=== PATIENT | male | born 1980 | race Caucasian/White ===

== ENCOUNTER 2016-12-21 15:50 | Emergency (ER) | payer MEDICAID ==
[~2016-12-21] VITALS: Ht 180.3 cm; Wt 80.3 kg
[~2016-12-21 15:50] MED LIST: HYDR2TAB34 PO; KEPP500 PO; WARF2TAB57; [UNRECOGNIZED DRUG - CODE] TOP
[2016-12-21 17:08] LABS: BASOPHILS % 0.8 % (0.0-2.0); EOSINOPHILS % 0.8 % (0.0-5.0); HEMATOCRIT. 36.2 % (42.0-52.0); HEMOGLOBIN. 11.9 g/dL (14.0-18.0); LYMPHOCYTES % 32.6 % (20.0-50.0); MEAN CORPUSCULAR HEMOGLOBIN 24.8 pg (28.0-32.0); MEAN CORPUSCULAR VOLUME 75.3 fL (80.0-94.0); MEAN PLATELET VOLUME 9.9 fl (7.4-10.4); MONOCYTES % 6.5 % (2.0-8.0); NEUTROPHILS % 59.3 % (40.0-76.0); PLATELET 171 x1000/uL (130-400); RED CELL DISTRIBUTION WIDTH 20.5 % (11.6-14.6)
[2016-12-21 17:12] LABS: INR 2.1; PARTIAL THROMBOPLASTIN TIME 32.3 sec (24.0-34.0); PROTHROMBIN TIME 21.5 sec
[2016-12-21] MEDS ORDERED: MORPHINE SULFATE 2 MG/ML CPJ (NOT FOR IM USE) IV ONE (17:15)
[2016-12-21 17:20] LABS: CARBON DIOXIDE 24 mEq/L (21-32); CHLORIDE 103 mEq/L (98-107); ETHANOL BLOOD < 10 mg/dL
[2016-12-21 17:27] LABS: *AMPHETAMINES SCREEN URINE NEGATIVE (NEGATIVE); *BARBITURATES SCREEN URINE NEGATIVE (NEGATIVE); *BENZODIAZEPINES SCREEN URINE NEGATIVE (NEGATIVE); *COCAINE SCREEN URINE NEGATIVE (NEGATIVE); CANNABINOID URINE SCREEN NEGATIVE (NEGATIVE); METHADONE URINE SCREEN NEGATIVE (NEGATIVE); OPIATES URINE SCREEN PRESUMTIVE POSITIVE (NEGATIVE); PHENCYCLIDINE URINE SCREEN NEGATIVE (NEGATIVE)
[2016-12-21 17:34] LABS: TROPONIN I < 0.02 ng/mL (0.00-0.04)
[2016-12-21 18:47] VITALS: BP 112/70
== END 2016-12-21 19:00 | disposition home or self-care (01) ==
LOC: ER 16:54
DX: R07.9 Chest pain, unspecified (principal); G40.909 Epilepsy, unspecified, not intractable, without status epilepticus; Z88.6 Allergy status to analgesic agent; Z88.0 Allergy status to penicillin; Z88.8 Allergy status to other drugs, medicaments and biological substances; Z91.012 Allergy to eggs; Z91.041 Radiographic dye allergy status; Z91.010 Allergy to peanuts; Z91.040 Latex allergy status; Z79.899 Other long term (current) drug therapy; Z79.01 Long term (current) use of anticoagulants; F17.200 Nicotine dependence, unspecified, uncomplicated; R51 Headache
CPT/HCPCS: 36415; 70450; 71010; 80053; 80305; 83690; 84484; 85025; 85610; 85730; 93005; 96374; 99285; G0482; J2270; Z7610

== ENCOUNTER 2017-09-10 08:09 | Inpatient (IN) | payer MEDICAID, OTHER ==
[~2017-09-10] VITALS: Ht 182.9 cm; Wt 79.4 kg
[~2017-09-10 08:09] MED LIST changes: -HYDR2TAB34 PO; +HYDR2TAB4 PO
[2017-09-10] MEDS ORDERED: LEVETIRACETAM 500MG PREMIX 100 ML IV ONE (09:45)
[2017-09-10] MEDS ORDERED: VANCOMYCIN 1 G PREMIX 200 ML IV ONE (10:00)
[2017-09-10] MEDS ORDERED: SODIUM CHLORIDE 0.9% 1000ML BAG (SEPSIS BOLUS) IV ONE (10:00)
[2017-09-10] MEDS ORDERED: PIPERACILLIN/TAZ 3.375G PREMIX 50 ML IV ONE (10:00)
[2017-09-10 10:16] LABS: CLARITY URINE CLEAR (CLEAR); COLOR URINE YELLOW (YELLOW); KETONES URINE NEGATIVE (NEGATIVE); LEUKOCYTE ESTERASE URINE NEGATIVE (NEGATIVE); NITRITE URINE NEGATIVE (NEGATIVE); OCCULT BLOOD URINE NEGATIVE (NEGATIVE); PH URINE 7.5 (4.5-8.0); PROTEIN URINE NEGATIVE (NEGATIVE); SPECIFIC GRAVITY URINE 1.005 (1.005-1.030); UROBILINOGEN URINE 0.2 E.U./dL (0.2-1.0)
[2017-09-10] MEDS ORDERED: ASPIRIN 81MG TABLET PO ONE (11:00)
[2017-09-10] MEDS ORDERED: LIDOCAINE HCL/PF 1% 10 MG/ML 5ML VIAL ONE (11:20)
[2017-09-10] MEDS ORDERED: MORPHINE SULFATE 4 MG/ML CPJ (NOT FOR IM USE) IV STA (11:25)
[2017-09-10] MEDS ORDERED: ONDANSETRON HCL 4MG/2ML INJ IV STA (11:25)
[2017-09-10 11:43] LABS: BASOPHILS % 0.6 % (0.0-2.0); EOSINOPHILS % 2.5 % (0.0-5.0); HEMATOCRIT. 33.6 % (42.0-52.0); HEMOGLOBIN. 11.2 g/dL (14.0-18.0); LYMPHOCYTES % 30.4 % (20.0-50.0); MEAN CORPUSCULAR HEMOGLOBIN 27.9 pg (28.0-32.0); MEAN CORPUSCULAR VOLUME 83.7 fL (80.0-94.0); MEAN PLATELET VOLUME 9.6 fl (7.4-10.4); MONOCYTES % 10.2 % (2.0-8.0); NEUTROPHILS % 56.3 % (40.0-76.0); PLATELET 162 x1000/uL (130-400); RED BLOOD CELL COUNT 4.02 mill/uL (4.7-6.1); RED CELL DISTRIBUTION WIDTH 15.4 % (11.6-14.6)
[2017-09-10 11:54] LABS: CHLORIDE 108 mEq/L (98-107)
[2017-09-10 11:55] LABS: D-DIMER 0.38 mg/L FEU (<0.50); INR 2.2; PARTIAL THROMBOPLASTIN TIME 30.5 sec (23.4-31.0); PROTHROMBIN TIME 23.4 sec (9.4-11.6)
[2017-09-10] MEDS ORDERED: ACETAMINOPHEN 325MG TABLET PO PRN (13:15)
[2017-09-10] MEDS ORDERED: ONDANSETRON HCL 4MG/2ML INJ IV PRN (13:15)
[2017-09-10] MEDS ORDERED: NA PHOS,M-B/NA PHOS,DI-BA ENEMA 118ML PR PRN (13:15)
[2017-09-10] MEDS ORDERED: MAGNESIUM/ALUMINUM HYDROXIDE/SIMETHICONE 30ML UDC PO PRN (13:15)
[2017-09-10] MEDS ORDERED: GUAIFENESIN 200MG/10ML SUGAR FREE UDC PO PRN (13:15)
[2017-09-10] MEDS ORDERED: IPRATROPIUM/ALBUTEROL 0.5-3(2.5)MG/3ML NEB INH PRN (13:15)
[2017-09-10] MEDS ORDERED: DIPHENHYDRAMINE 50MG/ML VIAL IV PRN (13:15)
[2017-09-10] MEDS ORDERED: CLONIDINE 0.1MG TABLET PO PRN (13:15)
[2017-09-10] MEDS ORDERED: DOCUSATE SODIUM 100MG CAPSULE PO PRN (13:15)
[2017-09-10] MEDS ORDERED: MORPHINE SULFATE 4 MG/ML CPJ (NOT FOR IM USE) IV ONE (13:30)
[2017-09-10] MEDS: LORAZEPAM 2MG/ML CPJ IV PRN ×2 (18:46→22:30)
[2017-09-10] MEDS: MORPHINE SULFATE 4 MG/ML CPJ (NOT FOR IM USE) IV PRN ×2 (18:46→22:31)
[2017-09-10 20:47] LABS: CHLORIDE 110 mEq/L (98-107)
[2017-09-10 21:45] VITALS: BP 108/53
[2017-09-10] MEDS ORDERED: ESTR1TAB17 PO (22:47)
[2017-09-10] MEDS ORDERED: KEPP500 PO (22:47)
[2017-09-10] MEDS ORDERED: WARF-53 PO (22:47)
[2017-09-10] MEDS ORDERED: MOM PO (22:47)
[2017-09-10] MEDS ORDERED: TRAZ-212 PO (22:47)
[2017-09-10] MEDS ORDERED: ATOR40TA70 PO (22:47)
[2017-09-10] MEDS ORDERED: FENT1PAT4 TD (22:47)
[2017-09-10 22:49] VITALS: BP 108/53
[2017-09-11] MEDS ORDERED: MAGNESIUM HYDROXIDE 400MG/5ML 30ML UDC PO PRN (02:45)
[2017-09-11 04:00] VITALS: BP 108/62
[2017-09-11] MEDS: LORAZEPAM 2MG/ML CPJ IV PRN ×5 (04:11→21:34)
[2017-09-11] MEDS: MORPHINE SULFATE 4 MG/ML CPJ (NOT FOR IM USE) IV PRN ×5 (04:12→21:35)
[2017-09-11 04:49] LABS: BASOPHILS % 0.9 % (0.0-2.0); EOSINOPHILS % 4.4 % (0.0-5.0); HEMATOCRIT. 31.2 % (42.0-52.0); HEMOGLOBIN. 10.4 g/dL (14.0-18.0); LYMPHOCYTES % 43.6 % (20.0-50.0); MEAN CORPUSCULAR HEMOGLOBIN 28.1 pg (28.0-32.0); MEAN CORPUSCULAR VOLUME 84.1 fL (80.0-94.0); MEAN PLATELET VOLUME 9.8 fl (7.4-10.4); MONOCYTES % 9.8 % (2.0-8.0); NEUTROPHILS % 41.3 % (40.0-76.0); PLATELET 139 x1000/uL (130-400); RED BLOOD CELL COUNT 3.71 mill/uL (4.7-6.1); RED CELL DISTRIBUTION WIDTH 14.8 % (11.6-14.6)
[2017-09-11 05:03] LABS: CHLORIDE 109 mEq/L (98-107); HDL CHOLESTEROL 31 mg/dL (40-59); LDL CHOLESTEROL 47 mg/dL (5-100)
[2017-09-11 05:06] LABS: T4 FREE 1.17 ng/dL (0.76-1.46)
[2017-09-11 07:43] VITALS: BP 101/56
[2017-09-11] MEDS: LEVETIRACETAM 500MG TABLET PO SCH ×2 (08:59→17:23)
[2017-09-11 12:00] VITALS: BP 109/54
[2017-09-11 16:00] VITALS: BP 102/57
[2017-09-11] MEDS ORDERED: TRAZODONE HCL 50MG TABLET PO SCH (17:00)
[2017-09-11] MEDS ORDERED: WARFARIN SODIUM 7.5MG TABLET PO SCH (18:00)
[2017-09-11] MEDS ORDERED: ATORVASTATIN CALCIUM 40MG TABLET PO SCH (21:00)
[2017-09-11 21:27] VITALS: BP 106/60
[2017-09-12 01:30] VITALS: BP 103/67
[2017-09-12] MEDS: LORAZEPAM 2MG/ML CPJ IV PRN ×2 (01:33→07:02)
[2017-09-12] MEDS: MORPHINE SULFATE 4 MG/ML CPJ (NOT FOR IM USE) IV PRN ×2 (01:34→06:53)
[2017-09-12] MEDS: LEVETIRACETAM 500MG TABLET PO SCH (09:22)
[2017-09-12] MEDS ORDERED: IBUPROFEN 600MG TABLET PO PRN (11:15)
[2017-09-12 11:39] VITALS: BP 110/67
== END 2017-09-12 12:00 | disposition home or self-care (01) | DRG 53 ==
LOC: ER 08:23 → 6WST 12:41 → MERGE 12:41 → EDBEDREQTM 12:41 → EDBEDREQ 12:41 → ENRESERV 18:40
PROVIDERS: ADMIT Internal Medicine; ATTEND Internal Medicine
DX: G40.909 Epilepsy, unspecified, not intractable, without status epilepticus (principal); D68.52 Prothrombin gene mutation; I10 Essential (primary) hypertension; R07.89 Other chest pain; Z59.0 Homelessness; Z79.01 Long term (current) use of anticoagulants; Z79.82 Long term (current) use of aspirin; Z79.899 Other long term (current) drug therapy; Z86.73 Personal history of transient ischemic attack (TIA), and cerebral infarction without residual deficits; Z99.3 Dependence on wheelchair; Z88.6 Allergy status to analgesic agent
CPT/HCPCS: 36415; 71045; 80048; 80061; 83605; 83880; 84439; 84443; 84484; 85379; 93005; 96365; 96366; 96368; 96375; 96376; 99285; J2060; J2270; J2405; J2543; J3370; J3490; J7030

== ENCOUNTER 2021-04-05 15:42 | Inpatient (IN) | payer MEDICAID, OTHER ==
[~2021-04-05] VITALS: Ht 182.9 cm; Wt 89.8 kg
[~2021-04-05 15:42] MED LIST changes: +ATOR40TA70 PO; +ESTR1TAB17 PO; +FENT1PAT4 TD; +MOM PO; +TRAZ-251 PO; +WARF-53 PO
[2021-04-05] MEDS ORDERED: MORPHINE SULFATE 4 MG/ML CPJ (NOT FOR IM USE) IV ONE ×2 (17:15→18:30)
[2021-04-05] MEDS ORDERED: ONDANSETRON HCL 4MG/2ML INJ IV ONE (17:15)
[2021-04-05] MEDS ORDERED: *NO ASPIRIN X 24 HOURS XX SCH (17:15)
[2021-04-05] MEDS ORDERED: ALTEPLASE 50MG/VIAL IV NR (17:30)
[2021-04-05 17:39] LABS: BASOPHILS % 0.7 % (0.0-2.0); EOSINOPHILS % 1.5 % (0.0-5.0); HEMOGLOBIN. 12.9 g/dL (14.0-18.0); LYMPHOCYTES % 21.8 % (20.0-50.0); MEAN CORPUSCULAR HEMOGLOBIN 25.8 pg (28.0-32.0); MEAN CORPUSCULAR VOLUME 75.9 fL (80.0-94.0); MEAN PLATELET VOLUME 10.1 fl (7.4-10.4); MONOCYTES % 12.8 % (2.0-8.0); NEUTROPHILS % 63.2 % (40.0-76.0); PLATELET 257 x1000/uL (130-400); RED BLOOD CELL COUNT 5.01 mill/uL (4.7-6.1); RED CELL DISTRIBUTION WIDTH 20.1 % (11.6-14.6)
[2021-04-05 17:42] LABS: CHLORIDE 102 mEq/L (98-107)
[2021-04-05 17:46] LABS: ETHANOL BLOOD < 10 mg/dL
[2021-04-05 17:50] LABS: LDL CHOLESTEROL 69 mg/dL (5-100)
[2021-04-05 18:00] LABS: INR 1.4; PROTHROMBIN TIME 15.1 sec (9.6-11.0)
[2021-04-05] MEDS ORDERED: WATER FOR INJECTION STERILE IV NR (18:00)
[2021-04-05] MEDS ORDERED: ALTEPLASE IV NR (18:00)
[2021-04-05] MEDS ORDERED: DIPHENHYDRAMINE 50MG/ML VIAL IV ONE ×2 (18:15→19:45)
[2021-04-05 18:39] LABS: CLARITY URINE CLEAR (CLEAR); COLOR URINE YELLOW (YELLOW); KETONES URINE NEGATIVE (NEGATIVE); LEUKOCYTE ESTERASE URINE NEGATIVE (NEGATIVE); NITRITE URINE NEGATIVE (NEGATIVE); OCCULT BLOOD URINE NEGATIVE (NEGATIVE); PROTEIN URINE NEGATIVE (NEGATIVE); SPECIFIC GRAVITY URINE 1.009 (1.005-1.030); UROBILINOGEN URINE 0.2 E.U./dL (0.2-1.0)
[2021-04-05 18:54] LABS: *AMPHETAMINES SCREEN URINE NEGATIVE (NEGATIVE); *BARBITURATES SCREEN URINE NEGATIVE (NEGATIVE); *BENZODIAZEPINES SCREEN URINE NEGATIVE (NEGATIVE)
[2021-04-05 18:55] LABS: *COCAINE SCREEN URINE NEGATIVE (NEGATIVE); CANNABINOID URINE SCREEN NEGATIVE (NEGATIVE); METHADONE URINE SCREEN NEGATIVE (NEGATIVE); OPIATES URINE SCREEN NEGATIVE (NEGATIVE); PHENCYCLIDINE URINE SCREEN NEGATIVE (NEGATIVE)
[2021-04-05] MEDS ORDERED: HYDROMORPHONE HCL/PF 2MG/ML CPJ IV ONE (19:45)
[2021-04-05] MEDS ORDERED: CLONIDINE 0.1MG TABLET PO PRN (22:30)
[2021-04-05] MEDS ORDERED: GUAIFENESIN 200MG/10ML SUGAR FREE UDC PO PRN (22:30)
[2021-04-05] MEDS ORDERED: LORAZEPAM 2MG/ML CPJ IV PRN (22:30)
[2021-04-05] MEDS ORDERED: ONDANSETRON HCL 4MG/2ML INJ IV PRN (22:30)
[2021-04-05] MEDS ORDERED: DOCUSATE SODIUM 100MG CAPSULE PO PRN (22:30)
[2021-04-06] VITALS (7 sets, daily range): BP systolic 108–143; BP diastolic 58–105
[2021-04-06 06:32] LABS: BASOPHILS % 0.8 % (0.0-2.0); EOSINOPHILS % 2.5 % (0.0-5.0); HEMATOCRIT. 37.1 % (42.0-52.0); HEMOGLOBIN. 12.3 g/dL (14.0-18.0); LYMPHOCYTES % 23.3 % (20.0-50.0); MEAN CORPUSCULAR HEMOGLOBIN 25.6 pg (28.0-32.0); MEAN CORPUSCULAR VOLUME 76.8 fL (80.0-94.0); MEAN PLATELET VOLUME 9.9 fl (7.4-10.4); MONOCYTES % 11.2 % (2.0-8.0); NEUTROPHILS % 62.2 % (40.0-76.0); PLATELET 215 x1000/uL (130-400); RED BLOOD CELL COUNT 4.83 mill/uL (4.7-6.1); RED CELL DISTRIBUTION WIDTH 20.5 % (11.6-14.6)
[2021-04-06 06:39] LABS: CHLORIDE 102 mEq/L (98-107)
[2021-04-06 06:46] LABS: LDL CHOLESTEROL 73 mg/dL (5-100)
[2021-04-06 06:47] LABS: HDL CHOLESTEROL 31 mg/dL (40-59)
[2021-04-06] MEDS: HYDROMORPHONE HCL/PF 2MG/ML CPJ IV PRN ×3 (07:10→20:03)
[2021-04-06] MEDS: DIPHENHYDRAMINE 25MG CAPSULE PO PRN (08:16)
[2021-04-06] MEDS ORDERED: *PATIENT'S OWN MEDICATION STORAGE XX SCH (13:15)
[2021-04-06] MEDS: FINASTERIDE 5MG TABLET PO SCH (13:22)
[2021-04-06] MEDS: DIPHENHYDRAMINE 50MG/ML VIAL IV PRN ×2 (14:35→19:59)
[2021-04-06] MEDS ORDERED: DAPA5TAB PO (16:19)
[2021-04-06] MEDS ORDERED: ESTR2TAB PO (16:24)
[2021-04-06] MEDS: CARBAMAZEPINE 100MG TABLET CHEW PO SCH (18:09)
[2021-04-06] MEDS ORDERED: ESTRADIOL 0.5 MG TABLET PO SCH (20:00)
[2021-04-06] MEDS: ESTRADIOL 2 MG PO SCH (20:42)
[2021-04-06] MEDS: LEVETIRACETAM 500MG TABLET PO SCH (20:42)
[2021-04-07] VITALS (12 sets, daily range): BP systolic 111–154; BP diastolic 59–116
[2021-04-07] MEDS: LEVETIRACETAM 500MG TABLET PO SCH ×2 (08:37→20:37)
[2021-04-07] MEDS: FINASTERIDE 5MG TABLET PO SCH (08:37)
[2021-04-07] MEDS: ESTRADIOL 2 MG PO SCH (08:38)
[2021-04-07] MEDS: CARBAMAZEPINE 100MG TABLET CHEW PO SCH ×2 (08:38→18:41)
[2021-04-07] MEDS: DIPHENHYDRAMINE 50MG/ML VIAL IV PRN ×3 (08:42→20:29)
[2021-04-07] MEDS: HYDROMORPHONE HCL/PF 2MG/ML CPJ IV PRN ×3 (08:42→20:33)
[2021-04-07] MEDS ORDERED: ENOXAPARIN 100MG/ML SYR SUBCUT SCH (10:00)
[2021-04-07] MEDS ORDERED: HEPARIN 5000 UNITS/ML VIAL IV PRN ×2 (11:30)
[2021-04-07 12:55] LABS: INR 1.2; PARTIAL THROMBOPLASTIN TIME 28.9 sec (23.4-31.0)
[2021-04-07] MEDS ORDERED: HEPARIN 5000 UNITS/ML VIAL IV NR (13:30)
[2021-04-08] VITALS (12 sets, daily range): BP systolic 107–126; BP diastolic 58–74
[2021-04-08] MEDS: DIPHENHYDRAMINE 50MG/ML VIAL IV PRN ×4 (03:09→23:12)
[2021-04-08] MEDS: HYDROMORPHONE HCL/PF 2MG/ML CPJ IV PRN ×5 (03:12→23:28)
[2021-04-08] MEDS: CARBAMAZEPINE 100MG TABLET CHEW PO SCH ×2 (09:14→18:25)
[2021-04-08] MEDS: FINASTERIDE 5MG TABLET PO SCH (09:14)
[2021-04-08] MEDS: LEVETIRACETAM 500MG TABLET PO SCH ×2 (09:14→23:12)
[2021-04-08] MEDS: ESTRADIOL 2 MG PO SCH (09:16)
[2021-04-08] MEDS: HEPARIN 25,000 UNITS PREMIX 250 ML IV PRN (15:05)
[2021-04-08] MEDS ORDERED: WARFARIN SODIUM 7.5MG TABLET PO NR (18:00)
[2021-04-08] MEDS ORDERED: NALOXONE HCL 0.4MG/ML VIAL IV PRN (21:00)
[2021-04-09] VITALS (12 sets, daily range): BP systolic 105–140; BP diastolic 55–73
[2021-04-09 00:41] LABS: HEMATOCRIT 29.9 % (42.0-52.0); HEMOGLOBIN 9.9 g/dL (14.0-18.0); MEAN CORPUSCULAR HEMOGLOBIN 25.8 pg (28.0-32.0); MEAN CORPUSCULAR VOLUME 77.7 fL (80.0-94.0); PLATELET 192 x1000/uL (130-400); RED BLOOD CELL COUNT 3.85 mill/uL (4.7-6.1); RED CELL DISTRIBUTION WIDTH 21.1 % (11.6-14.6)
[2021-04-09 01:31] LABS: INR 1.1; PARTIAL THROMBOPLASTIN TIME 29.3 sec (23.4-31.0); PROTHROMBIN TIME 11.8 sec (9.6-11.0)
[2021-04-09] MEDS: HEPARIN 5000 UNITS/ML VIAL IV PRN (03:05)
[2021-04-09] MEDS: HEPARIN 25,000 UNITS PREMIX 250 ML IV PRN ×3 (03:43→20:05)
[2021-04-09] MEDS: DIPHENHYDRAMINE 50MG/ML VIAL IV PRN ×3 (09:22→21:43)
[2021-04-09] MEDS: HYDROMORPHONE HCL/PF 2MG/ML CPJ IV PRN ×3 (09:24→21:42)
[2021-04-09] MEDS: CARBAMAZEPINE 100MG TABLET CHEW PO SCH ×2 (09:37→19:33)
[2021-04-09] MEDS: ESTRADIOL 2 MG PO SCH (09:38)
[2021-04-09] MEDS: FINASTERIDE 5MG TABLET PO SCH (09:38)
[2021-04-09] MEDS: LEVETIRACETAM 500MG TABLET PO SCH ×2 (09:56→21:40)
[2021-04-09] MEDS ORDERED: LEVE1000 PO (16:25)
[2021-04-09] MEDS ORDERED: TRAZ-252 PO (16:27)
[2021-04-09] MEDS ORDERED: WARF7.5T48 PO (16:28)
[2021-04-09] MEDS ORDERED: CARB200T6 PO (16:28)
[2021-04-09] MEDS ORDERED: FINA5TAB11 PO (16:29)
[2021-04-09] MEDS ORDERED: WARFARIN SODIUM 10MG TABLET PO SCH (18:00)
[2021-04-09] MEDS ORDERED: WARFARIN SODIUM 7.5MG TABLET PO SCH (18:00)
[2021-04-10] VITALS (12 sets, daily range): BP systolic 104–140; BP diastolic 53–72
[2021-04-10] MEDS: DIPHENHYDRAMINE 50MG/ML VIAL IV PRN ×4 (03:50→21:02)
[2021-04-10] MEDS: HYDROMORPHONE HCL/PF 2MG/ML CPJ IV PRN ×4 (03:51→21:04)
[2021-04-10] MEDS: HEPARIN 25,000 UNITS PREMIX 250 ML IV PRN ×2 (05:58→23:36)
[2021-04-10] MEDS: ESTRADIOL 2 MG PO SCH (09:49)
[2021-04-10] MEDS: FINASTERIDE 5MG TABLET PO SCH (09:49)
[2021-04-10] MEDS: CARBAMAZEPINE 100MG TABLET CHEW PO SCH ×2 (09:49→18:55)
[2021-04-10] MEDS: LEVETIRACETAM 500MG TABLET PO SCH ×2 (09:49→21:00)
[2021-04-10 10:54] LABS: INR 1.4; PARTIAL THROMBOPLASTIN TIME 65.3 sec (23.4-31.0)
[2021-04-10] MEDS ORDERED: WARFARIN SODIUM 10MG TABLET PO SCH (18:00)
[2021-04-11] VITALS (15 sets, daily range): BP systolic 102–143; BP diastolic 52–77
[2021-04-11] MEDS: DIPHENHYDRAMINE 50MG/ML VIAL IV PRN ×4 (03:39→21:07)
[2021-04-11] MEDS: HYDROMORPHONE HCL/PF 2MG/ML CPJ IV PRN ×4 (03:56→21:12)
[2021-04-11 07:44] LABS: INR 1.7; PROTHROMBIN TIME 17.3 sec (9.6-11.0)
[2021-04-11 07:52] LABS: PARTIAL THROMBOPLASTIN TIME 77.9 sec (23.4-31.0)
[2021-04-11] MEDS: FINASTERIDE 5MG TABLET PO SCH (08:38)
[2021-04-11] MEDS: CARBAMAZEPINE 100MG TABLET CHEW PO SCH ×2 (08:38→18:52)
[2021-04-11] MEDS: LEVETIRACETAM 500MG TABLET PO SCH ×2 (08:38→20:52)
[2021-04-11] MEDS: ESTRADIOL 2 MG PO SCH (08:39)
[2021-04-11 17:19] LABS: INR 1.7; PARTIAL THROMBOPLASTIN TIME 70.8 sec (23.4-31.0); PROTHROMBIN TIME 17.7 sec (9.6-11.0)
[2021-04-11] MEDS ORDERED: WARFARIN SODIUM 10MG TABLET PO SCH (18:00)
[2021-04-11] MEDS: HEPARIN 25,000 UNITS PREMIX 250 ML IV PRN (21:05)
[2021-04-12] VITALS (11 sets, daily range): BP systolic 95–133; BP diastolic 56–79
[2021-04-12] MEDS: DIPHENHYDRAMINE 50MG/ML VIAL IV PRN ×4 (02:43→22:17)
[2021-04-12] MEDS: HYDROMORPHONE HCL/PF 2MG/ML CPJ IV PRN ×4 (02:46→22:39)
[2021-04-12] MEDS: HEPARIN 5000 UNITS/ML VIAL IV PRN ×2 (03:49→19:41)
[2021-04-12] MEDS: FINASTERIDE 5MG TABLET PO SCH (09:07)
[2021-04-12] MEDS: CARBAMAZEPINE 100MG TABLET CHEW PO SCH ×2 (09:07→18:02)
[2021-04-12] MEDS: LEVETIRACETAM 500MG TABLET PO SCH ×2 (09:07→21:35)
[2021-04-12] MEDS: ESTRADIOL 2 MG PO SCH (09:08)
[2021-04-12 10:47] LABS: INR 1.8; PARTIAL THROMBOPLASTIN TIME 50.7 sec (23.4-31.0); PROTHROMBIN TIME 18.9 sec (9.6-11.0)
[2021-04-12] MEDS ORDERED: WARFARIN SODIUM 10MG TABLET PO NR (18:00)
[2021-04-13] VITALS (12 sets, daily range): BP systolic 102–141; BP diastolic 59–94
[2021-04-13] MEDS: DIPHENHYDRAMINE 50MG/ML VIAL IV PRN ×4 (04:00→22:06)
[2021-04-13] MEDS: HYDROMORPHONE HCL/PF 2MG/ML CPJ IV PRN ×4 (04:02→22:07)
[2021-04-13] MEDS: LEVETIRACETAM 500MG TABLET PO SCH ×2 (09:51→22:19)
[2021-04-13] MEDS: CARBAMAZEPINE 100MG TABLET CHEW PO SCH ×2 (09:51→18:41)
[2021-04-13] MEDS: ESTRADIOL 2 MG PO SCH (09:51)
[2021-04-13] MEDS: FINASTERIDE 5MG TABLET PO SCH (09:51)
[2021-04-13 12:19] LABS: INR 2.1; PARTIAL THROMBOPLASTIN TIME 46.9 sec (23.4-31.0); PROTHROMBIN TIME 21.1 sec (9.6-11.0)
[2021-04-13] MEDS ORDERED: WARFARIN SODIUM 10MG TABLET PO SCH (18:00)
[2021-04-13] MEDS: HEPARIN 5000 UNITS/ML VIAL IV PRN (22:27)
[2021-04-13] MEDS: HEPARIN 25,000 UNITS PREMIX 250 ML IV PRN (22:36)
[2021-04-14] VITALS (11 sets, daily range): BP systolic 105–155; BP diastolic 35–107
[2021-04-14] MEDS: DIPHENHYDRAMINE 50MG/ML VIAL IV PRN ×4 (04:07→21:47)
[2021-04-14] MEDS: HYDROMORPHONE HCL/PF 2MG/ML CPJ IV PRN ×4 (04:54→21:53)
[2021-04-14 07:34] LABS: INR 2.2; PROTHROMBIN TIME 22.1 sec (9.6-11.0)
[2021-04-14 07:53] LABS: PARTIAL THROMBOPLASTIN TIME 78.4 sec (23.4-31.0)
[2021-04-14] MEDS: CARBAMAZEPINE 100MG TABLET CHEW PO SCH ×2 (08:56→18:13)
[2021-04-14] MEDS: FINASTERIDE 5MG TABLET PO SCH (08:56)
[2021-04-14] MEDS: LEVETIRACETAM 500MG TABLET PO SCH ×2 (08:56→21:00)
[2021-04-14] MEDS: ESTRADIOL 2 MG PO SCH (08:57)
[2021-04-14] MEDS: HEPARIN 25,000 UNITS PREMIX 250 ML IV PRN (11:04)
[2021-04-14] MEDS ORDERED: WARFARIN SODIUM 10MG TABLET PO SCH (18:00)
[2021-04-15] VITALS (12 sets, daily range): BP systolic 105–131; BP diastolic 57–79
[2021-04-15] MEDS: DIPHENHYDRAMINE 50MG/ML VIAL IV PRN ×3 (06:07→18:09)
[2021-04-15] MEDS: HYDROMORPHONE HCL/PF 2MG/ML CPJ IV PRN ×3 (06:09→18:11)
[2021-04-15 07:53] LABS: PROTHROMBIN TIME 20.4 sec (9.6-11.0)
[2021-04-15] MEDS: FINASTERIDE 5MG TABLET PO SCH (08:48)
[2021-04-15] MEDS: LEVETIRACETAM 500MG TABLET PO SCH ×2 (08:48→21:08)
[2021-04-15] MEDS: CARBAMAZEPINE 100MG TABLET CHEW PO SCH ×2 (08:48→17:57)
[2021-04-15] MEDS: ESTRADIOL 2 MG PO SCH (08:49)
[2021-04-15] MEDS: WARFARIN SODIUM 10MG TABLET PO SCH (18:00)
[2021-04-16] VITALS (12 sets, daily range): BP systolic 101–131; BP diastolic 54–101
[2021-04-16] MEDS: DIPHENHYDRAMINE 50MG/ML VIAL IV PRN ×5 (00:02→22:40)
[2021-04-16] MEDS: HYDROMORPHONE HCL/PF 2MG/ML CPJ IV PRN (00:05)
[2021-04-16] MEDS ORDERED: HYDROMORPHONE HCL/PF 2MG/ML CPJ IV SCH (06:45)
[2021-04-16 08:03] LABS: INR 2.1; PROTHROMBIN TIME 21.3 sec (9.6-11.0)
[2021-04-16] MEDS: CARBAMAZEPINE 100MG TABLET CHEW PO SCH ×2 (08:59→18:06)
[2021-04-16] MEDS: LEVETIRACETAM 500MG TABLET PO SCH ×2 (08:59→22:02)
[2021-04-16] MEDS: FINASTERIDE 5MG TABLET PO SCH (08:59)
[2021-04-16] MEDS: ESTRADIOL 2 MG PO SCH (09:00)
[2021-04-16] MEDS: MORPHINE SULFATE 2 MG/ML CPJ (NOT FOR IM USE) IV PRN ×3 (10:48→22:42)
[2021-04-16] MEDS: WARFARIN SODIUM 10MG TABLET PO SCH (18:06)
[2021-04-17] VITALS (9 sets, daily range): BP systolic 100–132; BP diastolic 50–69
[2021-04-17] MEDS: DIPHENHYDRAMINE 50MG/ML VIAL IV PRN ×2 (06:16→20:00)
[2021-04-17] MEDS: MORPHINE SULFATE 2 MG/ML CPJ (NOT FOR IM USE) IV PRN ×2 (06:17→18:31)
[2021-04-17] MEDS: CARBAMAZEPINE 100MG TABLET CHEW PO SCH ×2 (08:05→17:00)
[2021-04-17 08:07] LABS: INR 2.2; PROTHROMBIN TIME 22.5 sec (9.6-11.0)
[2021-04-17 08:21] LABS: HEMATOCRIT 28.9 % (42.0-52.0); HEMOGLOBIN 9.6 g/dL (14.0-18.0); MEAN CORPUSCULAR HEMOGLOBIN 26.1 pg (28.0-32.0); MEAN CORPUSCULAR VOLUME 78.3 fL (80.0-94.0); PLATELET 248 x1000/uL (130-400); RED BLOOD CELL COUNT 3.69 mill/uL (4.7-6.1); RED CELL DISTRIBUTION WIDTH 19.7 % (11.6-14.6)
[2021-04-17] MEDS: FINASTERIDE 5MG TABLET PO SCH (09:09)
[2021-04-17] MEDS: LEVETIRACETAM 500MG TABLET PO SCH ×2 (09:09→19:52)
[2021-04-17] MEDS: ESTRADIOL 2 MG PO SCH (09:09)
[2021-04-17] MEDS ORDERED: *PATIENT'S OWN MEDICATION STORAGE XX SCH (16:15)
[2021-04-17] MEDS ORDERED: WARFARIN SODIUM 10MG TABLET PO NR (18:00)
[2021-04-17] MEDS: DIPHENHYDRAMINE 25MG CAPSULE PO PRN (19:53)
[2021-04-18] VITALS: BP 102/61
[2021-04-18] MEDS: MORPHINE SULFATE 2 MG/ML CPJ (NOT FOR IM USE) IV PRN ×4 (00:34→18:32)
[2021-04-18] MEDS: DIPHENHYDRAMINE 50MG/ML VIAL IV PRN ×4 (01:42→20:17)
[2021-04-18 04:00] VITALS: BP 99/61
[2021-04-18 06:29] LABS: INR 2.4; PROTHROMBIN TIME 24.2 sec (9.6-11.0)
[2021-04-18 08:00] VITALS: BP 100/57
[2021-04-18] MEDS: CARBAMAZEPINE 100MG TABLET CHEW PO SCH ×2 (08:07→17:52)
[2021-04-18] MEDS: FINASTERIDE 5MG TABLET PO SCH (08:08)
[2021-04-18] MEDS: LEVETIRACETAM 500MG TABLET PO SCH ×2 (08:08→20:17)
[2021-04-18] MEDS: ESTRADIOL 2 MG PO SCH (08:08)
[2021-04-18 12:00] VITALS: BP 105/61
[2021-04-18] MEDS ORDERED: WARFARIN SODIUM 10MG TABLET PO NR (18:00)
[2021-04-18 20:00] VITALS: BP 105/63
[2021-04-19] VITALS: BP 105/60
[2021-04-19] MEDS: MORPHINE SULFATE 2 MG/ML CPJ (NOT FOR IM USE) IV PRN ×3 (00:32→15:12)
[2021-04-19] MEDS: DIPHENHYDRAMINE 50MG/ML VIAL IV PRN ×4 (02:11→22:25)
[2021-04-19 04:00] VITALS: BP 108/65
[2021-04-19 08:00] VITALS: BP 113/64
[2021-04-19] MEDS: LEVETIRACETAM 500MG TABLET PO SCH ×2 (08:51→21:48)
[2021-04-19] MEDS: FINASTERIDE 5MG TABLET PO SCH (08:51)
[2021-04-19] MEDS: ESTRADIOL 2 MG PO SCH (08:52)
[2021-04-19] MEDS: CARBAMAZEPINE 100MG TABLET CHEW PO SCH ×2 (08:52→18:07)
[2021-04-19 10:56] LABS: INR 2.6; PROTHROMBIN TIME 25.6 sec (9.6-11.0)
[2021-04-19] MEDS ORDERED: WARFARIN SODIUM 10MG TABLET PO SCH (18:00)
[2021-04-19] MEDS ORDERED: MORPHINE SULFATE 2 MG/ML CPJ (NOT FOR IM USE) IV NR (18:00)
[2021-04-19 20:00] VITALS: BP 127/72
[2021-04-20] VITALS: BP 120/66
[2021-04-20] MEDS: MORPHINE SULFATE 2 MG/ML CPJ (NOT FOR IM USE) IV PRN ×2 (00:05→06:07)
[2021-04-20] MEDS: DIPHENHYDRAMINE 50MG/ML VIAL IV PRN ×4 (04:27→23:08)
[2021-04-20 06:06] VITALS: BP 119/63
[2021-04-20] MEDS: LEVETIRACETAM 500MG TABLET PO SCH ×2 (08:57→22:10)
[2021-04-20] MEDS: FINASTERIDE 5MG TABLET PO SCH (08:57)
[2021-04-20] MEDS: CARBAMAZEPINE 100MG TABLET CHEW PO SCH ×2 (08:57→17:01)
[2021-04-20] MEDS: ESTRADIOL 2 MG PO SCH (08:58)
[2021-04-20 11:37] LABS: INR 2.3; PROTHROMBIN TIME 23.4 sec (9.6-11.0)
[2021-04-20 12:00] VITALS: BP 122/56
[2021-04-20] MEDS: HYDROMORPHONE HCL/PF 2MG/ML CPJ IV PRN ×2 (13:00→19:01)
[2021-04-20 16:00] VITALS: BP 124/56
[2021-04-20] MEDS ORDERED: WARFARIN SODIUM 10MG TABLET PO SCH (18:00)
[2021-04-20 20:00] VITALS: BP 129/78
[2021-04-21] VITALS: BP 117/62
[2021-04-21] MEDS: HYDROMORPHONE HCL/PF 2MG/ML CPJ IV PRN ×4 (01:09→19:45)
[2021-04-21 04:00] VITALS: BP 104/64
[2021-04-21] MEDS: DIPHENHYDRAMINE 50MG/ML VIAL IV PRN ×3 (06:02→21:56)
[2021-04-21] MEDS: ESTRADIOL 2 MG PO SCH (08:17)
[2021-04-21] MEDS: LEVETIRACETAM 500MG TABLET PO SCH ×2 (08:17→22:05)
[2021-04-21] MEDS: FINASTERIDE 5MG TABLET PO SCH (08:17)
[2021-04-21] MEDS: CARBAMAZEPINE 100MG TABLET CHEW PO SCH ×2 (08:17→17:38)
[2021-04-21 13:19] LABS: INR 2.3; PROTHROMBIN TIME 23.2 sec (9.6-11.0)
[2021-04-21 16:00] VITALS: BP 119/65
[2021-04-21] MEDS ORDERED: WARFARIN SODIUM 10MG TABLET PO SCH (18:00)
[2021-04-21 20:00] VITALS: BP 153/66
[2021-04-22] VITALS: BP 104/59
[2021-04-22] MEDS: HYDROMORPHONE HCL/PF 2MG/ML CPJ IV PRN ×2 (02:15→09:32)
[2021-04-22] MEDS: DIPHENHYDRAMINE 50MG/ML VIAL IV PRN ×4 (03:56→22:42)
[2021-04-22 08:00] VITALS: BP 109/68
[2021-04-22] MEDS: CARBAMAZEPINE 100MG TABLET CHEW PO SCH (09:22)
[2021-04-22] MEDS: ESTRADIOL 2 MG PO SCH (09:23)
[2021-04-22] MEDS: FINASTERIDE 5MG TABLET PO SCH (09:25)
[2021-04-22] MEDS: LEVETIRACETAM 500MG TABLET PO SCH ×2 (09:51→21:00)
[2021-04-22 16:00] VITALS: BP 112/69
[2021-04-22] MEDS ORDERED: OXYCODONE HCL/ACETAMINOPHEN 5/325MG TABLET PO PRN (16:45)
[2021-04-22] MEDS ORDERED: NALOXONE HCL 0.4MG/ML VIAL IV PRN (17:00)
[2021-04-22] MEDS ORDERED: WARFARIN SODIUM 10MG TABLET PO SCH (18:00)
[2021-04-22] MEDS ORDERED: OXYCODONE HCL 5MG TABLET PO PRN (18:15)
[2021-04-22 19:52] VITALS: BP 157/67
[2021-04-23] MEDS: DIPHENHYDRAMINE 50MG/ML VIAL IV PRN (05:03)
== END 2021-04-23 08:45 | disposition left against medical advice (07) | DRG 45 ==
LOC: ER 15:42 → MICUSO 18:57 → EDBEDREQTM 19:09 → EDBEDREQ 19:09 → EDBEDREQSVC 19:09 → 5EST 04-06 08:34 → 6EST 04-17 14:31
PROVIDERS: ADMIT Hospitalist; ATTEND Hospitalist
DX: I63.9 Cerebral infarction, unspecified (principal); D68.52 Prothrombin gene mutation; D68.59 Other primary thrombophilia; D68.2 Hereditary deficiency of other clotting factors; G81.91 Hemiplegia, unspecified affecting right dominant side; F64.9 Gender identity disorder, unspecified; E11.9 Type 2 diabetes mellitus without complications; G40.909 Epilepsy, unspecified, not intractable, without status epilepticus; G51.0 Bell's palsy; R29.707 NIHSS score 7; Z86.73 Personal history of transient ischemic attack (TIA), and cerebral infarction without residual deficits; Z86.711 Personal history of pulmonary embolism; Z79.890 Hormone replacement therapy; Z91.041 Radiographic dye allergy status; Z87.892 Personal history of anaphylaxis; Z88.8 Allergy status to other drugs, medicaments and biological substances; Z88.6 Allergy status to analgesic agent; Z91.012 Allergy to eggs; Z91.040 Latex allergy status; Z91.013 Allergy to seafood; Z79.01 Long term (current) use of anticoagulants; Z79.891 Long term (current) use of opiate analgesic; Z99.3 Dependence on wheelchair; Z59.00 Homelessness unspecified; Z91.19 Patient's noncompliance with other medical treatment and regimen
CPT/HCPCS: 36415; 70544; 70553; 71045; 80053; 80061; 80305; 80320; 81003; 82962; 83721; 84484; 85025; 85027; 93005; 97110; 97162; 97166; 99291; J1170; J1200; J1644; J2270; J2405; J2997; J7042; Q0163; G0480

== ENCOUNTER 2021-12-10 17:16 | Inpatient (IN) | payer MEDICAID ==
[~2021-12-10] VITALS: Ht 182.9 cm; Wt 85.7 kg
[~2021-12-10 17:16] MED LIST changes: +CARB200T6 PO; +DAPA5TAB PO; -ESTR1TAB17 PO; +ESTR2TAB6 PO; -FENT1PAT4 TD; +FINA5TAB11 PO; -HYDR2TAB4 PO; -KEPP500 PO; +LEVE1000 PO; -MOM PO; -TRAZ-251 PO; +TRAZ-252 PO; -WARF-53 PO; -WARF2TAB57; +WARF7.5T48 PO; -[UNRECOGNIZED DRUG - CODE] TOP
[2021-12-10] MEDS ORDERED: PROSCAR (17:29)
[2021-12-10] MEDS ORDERED: ESTRADIOL (17:29)
[2021-12-10 18:13] LABS: CLARITY URINE CLEAR (CLEAR); COLOR URINE YELLOW (YELLOW); KETONES URINE NEGATIVE (NEGATIVE); LEUKOCYTE ESTERASE URINE NEGATIVE (NEGATIVE); NITRITE URINE NEGATIVE (NEGATIVE); OCCULT BLOOD URINE NEGATIVE (NEGATIVE); PROTEIN URINE NEGATIVE (NEGATIVE); SPECIFIC GRAVITY URINE 1.004 (1.005-1.030); UROBILINOGEN URINE 0.2 E.U./dL (0.2-1.0)
[2021-12-10 18:26] LABS: *AMPHETAMINES SCREEN URINE NEGATIVE (NEGATIVE); *BARBITURATES SCREEN URINE NEGATIVE (NEGATIVE); *BENZODIAZEPINES SCREEN URINE NEGATIVE (NEGATIVE); *COCAINE SCREEN URINE NEGATIVE (NEGATIVE); CANNABINOID URINE SCREEN NEGATIVE (NEGATIVE); METHADONE URINE SCREEN NEGATIVE (NEGATIVE); OPIATES URINE SCREEN NEGATIVE (NEGATIVE); PHENCYCLIDINE URINE SCREEN NEGATIVE (NEGATIVE)
[2021-12-10] MEDS ORDERED: DIPHENHYDRAMINE 50MG/ML VIAL IM ONE (18:45)
[2021-12-10] MEDS ORDERED: MORPHINE SULFATE 4 MG/ML CPJ (NOT FOR IM USE) IV ONE (18:45)
[2021-12-10] MEDS ORDERED: ALTEPLASE 2MG/VIAL ITC ONE (18:45)
[2021-12-10] MEDS ORDERED: ALTEPLASE IV ONE (18:45)
[2021-12-10] MEDS ORDERED: SODIUM CHLORIDE 0.9% IV ONE (18:45)
[2021-12-10] MEDS ORDERED: *NO ASPIRIN X 24 HOURS XX SCH (19:00)
[2021-12-10] MEDS ORDERED: ALTEPLASE 100MG/VIAL IV ONE (19:00)
[2021-12-10] MEDS ORDERED: ALTEPLASE IV NR (19:00)
[2021-12-10] MEDS ORDERED: MORPHINE SULFATE 4 MG/ML CPJ (NOT FOR IM USE) IV STA ×2 (19:20→20:47)
[2021-12-10] MEDS ORDERED: ONDANSETRON HCL 4MG/2ML INJ IV STA ×2 (19:20→20:47)
[2021-12-10] MEDS ORDERED: DIPHENHYDRAMINE 50MG/ML VIAL IV ONE (19:30)
[2021-12-10 19:42] LABS: BASOPHILS % 0.4 % (0.0-2.0); EOSINOPHILS % 0.3 % (0.0-5.0); HEMATOCRIT. 25.1 % (42.0-52.0); HEMOGLOBIN. 7.9 g/dL (14.0-18.0); LYMPHOCYTES % 18.6 % (20.0-50.0); MEAN CORPUSCULAR HEMOGLOBIN 21.8 pg (28.0-32.0); MEAN CORPUSCULAR VOLUME 69.3 fL (80.0-94.0); MEAN PLATELET VOLUME 9.8 fl (7.4-10.4); MONOCYTES % 8.9 % (2.0-8.0); NEUTROPHILS % 71.8 % (40.0-76.0); PLATELET 205 x1000/uL (130-400); RED BLOOD CELL COUNT 3.62 mill/uL (4.7-6.1); RED CELL DISTRIBUTION WIDTH 20.5 % (11.6-14.6)
[2021-12-10 19:52] LABS: INR 2.8; PARTIAL THROMBOPLASTIN TIME 24.9 sec (23.4-31.0); PROTHROMBIN TIME 27.3 sec (9.6-11.0)
[2021-12-10 20:52] LABS: CHLORIDE 105 mEq/L (98-107)
[2021-12-10 21:01] LABS: ETHANOL BLOOD < 10 mg/dL
[2021-12-10 21:24] LABS: PLATELET ESTIMATE NORMAL
[2021-12-10] MEDS ORDERED: GUAIFENESIN 200MG/10ML SUGAR FREE UDC PO PRN (23:00)
[2021-12-10] MEDS ORDERED: ONDANSETRON HCL 4MG/2ML INJ IV PRN (23:00)
[2021-12-10] MEDS ORDERED: MAGNESIUM/ALUMINUM HYDROXIDE/SIMETHICONE 30ML UDC PO PRN (23:00)
[2021-12-10] MEDS ORDERED: NALOXONE HCL 0.4MG/ML VIAL IV PRN (23:30)
[2021-12-10] MEDS: MORPHINE SULFATE 4 MG/ML CPJ (NOT FOR IM USE) IV PRN (23:34)
[2021-12-11] VITALS (12 sets, daily range): BP systolic 115–138; BP diastolic 43–80
[2021-12-11] MEDS: MORPHINE SULFATE 4 MG/ML CPJ (NOT FOR IM USE) IV PRN ×7 (03:23→22:54)
[2021-12-11] MEDS: DIPHENHYDRAMINE 50MG CAPSULE PO PRN ×2 (05:05→16:57)
[2021-12-11] MEDS ORDERED: FENT1PAT5 TP (05:36)
[2021-12-11] MEDS ORDERED: HYDROXYZINE 25MG TABLET PO PRN (06:30)
[2021-12-11] MEDS: LEVETIRACETAM 500MG TABLET PO SCH ×2 (08:40→20:56)
[2021-12-11 11:16] LABS: BASOPHILS % 0.8 % (0.0-2.0); EOSINOPHILS % 2.6 % (0.0-5.0); HEMATOCRIT. 24.5 % (42.0-52.0); HEMOGLOBIN. 7.7 g/dL (14.0-18.0); LYMPHOCYTES % 28.8 % (20.0-50.0); MEAN CORPUSCULAR HEMOGLOBIN 21.5 pg (28.0-32.0); MEAN CORPUSCULAR VOLUME 68.8 fL (80.0-94.0); MEAN PLATELET VOLUME 9.5 fl (7.4-10.4); MONOCYTES % 13.8 % (2.0-8.0); PLATELET 183 x1000/uL (130-400); RED BLOOD CELL COUNT 3.56 mill/uL (4.7-6.1); RED CELL DISTRIBUTION WIDTH 20.4 % (11.6-14.6)
[2021-12-11 11:27] LABS: INR 1.8; PROTHROMBIN TIME 18.8 sec (9.6-11.0)
[2021-12-11 11:31] LABS: CHLORIDE 104 mEq/L (98-107)
[2021-12-11 11:37] LABS: PHOSPHORUS 3.3 mg/dL (2.5-4.9)
[2021-12-12] VITALS (7 sets, daily range): BP systolic 113–129; BP diastolic 59–84
[2021-12-12] MEDS: MORPHINE SULFATE 4 MG/ML CPJ (NOT FOR IM USE) IV PRN ×8 (01:53→23:48)
[2021-12-12] MEDS: LEVETIRACETAM 500MG TABLET PO SCH ×2 (08:26→20:48)
[2021-12-12 10:26] LABS: EOSINOPHILS % 3.4 % (0.0-5.0); HEMATOCRIT. 24.3 % (42.0-52.0); HEMOGLOBIN. 7.6 g/dL (14.0-18.0); LYMPHOCYTES % 30.5 % (20.0-50.0); MEAN CORPUSCULAR HEMOGLOBIN 21.5 pg (28.0-32.0); MEAN CORPUSCULAR VOLUME 68.9 fL (80.0-94.0); MEAN PLATELET VOLUME 9.2 fl (7.4-10.4); NEUTROPHILS % 51.1 % (40.0-76.0); PLATELET 167 x1000/uL (130-400); RED BLOOD CELL COUNT 3.52 mill/uL (4.7-6.1); RED CELL DISTRIBUTION WIDTH 20.4 % (11.6-14.6)
[2021-12-12 10:49] LABS: CHLORIDE 102 mEq/L (98-107)
[2021-12-12 10:56] LABS: PHOSPHORUS 3.1 mg/dL (2.5-4.9)
[2021-12-12] MEDS ORDERED: HYDROXYZINE 25MG TABLET PO PRN (22:30)
[2021-12-13] MEDS ORDERED: HYDROXYZINE 25MG TABLET PO PRN (00:30)
[2021-12-13] MEDS: MORPHINE SULFATE 4 MG/ML CPJ (NOT FOR IM USE) IV PRN ×6 (02:57→21:07)
[2021-12-13 04:00] VITALS: BP 124/65
[2021-12-13] MEDS: HYDROCORTISONE 1% CREAM 30GM TOP SCH ×3 (06:00→21:09)
[2021-12-13 08:00] VITALS: BP 115/68
[2021-12-13] MEDS: LEVETIRACETAM 500MG TABLET PO SCH ×2 (08:41→21:05)
[2021-12-13] MEDS ORDERED: NALOXONE HCL 0.4MG/ML VIAL IV PRN (08:45)
[2021-12-13] MEDS ORDERED: POLYETHYLENE GLYCOL 3350 (17GM) 1 DOSE PACK PO PRN (09:15)
[2021-12-13] MEDS ORDERED: MAGNESIUM HYDROXIDE 400MG/5ML 30ML UDC PO PRN (09:15)
[2021-12-13] MEDS: SENNOSIDES/DOCUSATE SOD 8.6/50MG TABLET PO SCH ×2 (10:07→16:29)
[2021-12-13 12:00] VITALS: BP 121/54
[2021-12-13 14:20] LABS: EOSINOPHILS % 3.8 % (0.0-5.0); HEMATOCRIT. 25.4 % (42.0-52.0); LYMPHOCYTES % 26.4 % (20.0-50.0); MEAN CORPUSCULAR HEMOGLOBIN 21.6 pg (28.0-32.0); MEAN CORPUSCULAR VOLUME 68.1 fL (80.0-94.0); MEAN PLATELET VOLUME 10.2 fl (7.4-10.4); MONOCYTES % 12.4 % (2.0-8.0); NEUTROPHILS % 56.4 % (40.0-76.0); PLATELET 199 x1000/uL (130-400); RED BLOOD CELL COUNT 3.73 mill/uL (4.7-6.1); RED CELL DISTRIBUTION WIDTH 20.2 % (11.6-14.6)
[2021-12-13 14:30] LABS: CHLORIDE 102 mEq/L (98-107)
[2021-12-13 16:00] VITALS: BP 110/75
[2021-12-13 20:00] VITALS: BP 118/67
[2021-12-14] MEDS: HYDROCORTISONE 1% CREAM 30GM TOP SCH ×3 (06:00→22:00)
[2021-12-14 08:00] VITALS: BP 102/53
[2021-12-14] MEDS: LEVETIRACETAM 500MG TABLET PO SCH ×2 (08:59→20:53)
[2021-12-14] MEDS: SENNOSIDES/DOCUSATE SOD 8.6/50MG TABLET PO SCH ×2 (09:00→17:00)
[2021-12-14] MEDS: MORPHINE SULFATE 4 MG/ML CPJ (NOT FOR IM USE) IV PRN ×2 (09:00→20:54)
[2021-12-14 09:06] LABS: BASOPHILS % 0.9 % (0.0-2.0); EOSINOPHILS % 4.1 % (0.0-5.0); HEMATOCRIT. 25.6 % (42.0-52.0); LYMPHOCYTES % 28.3 % (20.0-50.0); MEAN CORPUSCULAR HEMOGLOBIN 21.3 pg (28.0-32.0); MEAN PLATELET VOLUME 9.3 fl (7.4-10.4); MONOCYTES % 14.4 % (2.0-8.0); NEUTROPHILS % 52.3 % (40.0-76.0); PLATELET 197 x1000/uL (130-400); RED BLOOD CELL COUNT 3.77 mill/uL (4.7-6.1); RED CELL DISTRIBUTION WIDTH 20.2 % (11.6-14.6)
[2021-12-14 09:20] LABS: CHLORIDE 105 mEq/L (98-107)
[2021-12-14 09:21] LABS: PROTHROMBIN TIME 10.7 sec (9.6-11.0)
[2021-12-14 09:36] LABS: TOTAL IRON BINDING CAPACITY 418 ug/dL (250-450)
[2021-12-14] MEDS: FERROUS SULFATE 325MG TABLET PO SCH (11:00)
[2021-12-14 12:00] VITALS: BP 118/60
[2021-12-14 16:00] VITALS: BP 127/60
[2021-12-14] MEDS: FINASTERIDE 5MG TABLET PO SCH (17:02)
[2021-12-14] MEDS ORDERED: HEPARIN 5000 UNITS/ML VIAL IV NR (17:30)
[2021-12-14] MEDS ORDERED: WARFARIN SODIUM 5MG TABLET PO NR (18:00)
[2021-12-14] MEDS ORDERED: WARFARIN SODIUM 7.5MG TABLET PO SCH (18:00)
[2021-12-14] MEDS: HEPARIN 25,000 UNITS PREMIX 250 ML IV PRN (18:01)
[2021-12-15] VITALS: BP 116/3
[2021-12-15] MEDS ORDERED: HEPARIN 5000 UNITS/ML VIAL IV PRN ×2
[2021-12-15] MEDS: MORPHINE SULFATE 4 MG/ML CPJ (NOT FOR IM USE) IV PRN ×3 (00:54→09:22)
[2021-12-15] MEDS: HEPARIN 25,000 UNITS PREMIX 250 ML IV PRN (03:23)
[2021-12-15 04:00] VITALS: BP 117/63
[2021-12-15] MEDS: HYDROCORTISONE 1% CREAM 30GM TOP SCH (05:19)
[2021-12-15 08:00] VITALS: BP 110/71
[2021-12-15] MEDS: FERROUS SULFATE 325MG TABLET PO SCH (09:00)
[2021-12-15] MEDS: SENNOSIDES/DOCUSATE SOD 8.6/50MG TABLET PO SCH (09:00)
[2021-12-15] MEDS: FINASTERIDE 5MG TABLET PO SCH (09:12)
[2021-12-15] MEDS: LEVETIRACETAM 500MG TABLET PO SCH (09:13)
[2021-12-15 09:22] VITALS: BP 110/71
[2021-12-15 10:28] LABS: BASOPHILS % 0.8 % (0.0-2.0); EOSINOPHILS % 4.4 % (0.0-5.0); HEMATOCRIT. 23.9 % (42.0-52.0); HEMOGLOBIN. 7.5 g/dL (14.0-18.0); MEAN CORPUSCULAR HEMOGLOBIN 21.5 pg (28.0-32.0); MEAN CORPUSCULAR VOLUME 68.3 fL (80.0-94.0); MEAN PLATELET VOLUME 9.8 fl (7.4-10.4); MONOCYTES % 12.6 % (2.0-8.0); NEUTROPHILS % 50.2 % (40.0-76.0); PLATELET 189 x1000/uL (130-400); RED BLOOD CELL COUNT 3.51 mill/uL (4.7-6.1); RED CELL DISTRIBUTION WIDTH 20.3 % (11.6-14.6)
[2021-12-15 10:33] LABS: CHLORIDE 107 mEq/L (98-107)
[2021-12-15 10:43] LABS: PARTIAL THROMBOPLASTIN TIME 58.8 sec (23.4-31.0); PROTHROMBIN TIME 10.6 sec (9.6-11.0)
== END 2021-12-15 12:05 | disposition home or self-care (01) | DRG 661 ==
LOC: ER 17:16 → EDBEDREQSVC 19:26 → EDBEDREQTM 19:26 → EDBEDREQ 19:26 → MICUSO 20:54 → EDBEDREQ 20:57 → EDBEDREQTM 20:57 → SUPCPDRO 21:41 → 8WST 12-11 00:58
PROVIDERS: ADMIT Internal Medicine; ATTEND Internal Medicine
PROC: 06HY33Z Insertion of Infusion Device into Lower Vein, Percutaneous Approach (ICD-10-PCS; principal; 2021-12-10)
PROC: B54CZZA Ultrasonography of Left Lower Extremity Veins, Guidance (ICD-10-PCS; 2021-12-10)
PROC: 3E04317 Introduction of Other Thrombolytic into Central Vein, Percutaneous Approach (ICD-10-PCS; 2021-12-10)
DX: D68.52 Prothrombin gene mutation (principal); I69.354 Hemiplegia and hemiparesis following cerebral infarction affecting left non-dominant side; D50.9 Iron deficiency anemia, unspecified; G40.909 Epilepsy, unspecified, not intractable, without status epilepticus; E78.5 Hyperlipidemia, unspecified; I48.0 Paroxysmal atrial fibrillation; F17.200 Nicotine dependence, unspecified, uncomplicated; R29.706 NIHSS score 6; R29.810 Facial weakness; Z66 Do not resuscitate; M54.9 Dorsalgia, unspecified; G89.29 Other chronic pain; I25.2 Old myocardial infarction; Z79.01 Long term (current) use of anticoagulants; Z99.3 Dependence on wheelchair; Z59.00 Homelessness unspecified; Z63.8 Other specified problems related to primary support group; Z86.711 Personal history of pulmonary embolism; Z86.718 Personal history of other venous thrombosis and embolism; Z88.7 Allergy status to serum and vaccine; Z88.8 Allergy status to other drugs, medicaments and biological substances; Z88.6 Allergy status to analgesic agent; Z91.041 Radiographic dye allergy status; Z88.0 Allergy status to penicillin; Z91.013 Allergy to seafood; Z79.899 Other long term (current) drug therapy; M21.931 Unspecified acquired deformity of right forearm; R53.1 Weakness
CPT/HCPCS: 36415; 71045; 80048; 80053; 80305; 80320; 81003; 82270; 82728; 82962; 83540; 83550; 83735; 83880; 84100; 84443; 84484; 85025; 86850; 86900; 93005; 93306; 93971; 97162; 97166; 99291; J1200; J1644; J2270; J2405; J2997; J7050; Q0163; G0480